=== PATIENT | male | born 2000 | race African-American/Black ===

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

== ENCOUNTER 2019-03-29 01:54 | Emergency (ER) | payer OTHER, SELFPAY ==
[2019-03-29] MEDS ORDERED: Ondansetron PF 4 MG/2 ML Vial ONE (02:22)
[2019-03-29 02:32] LABS: #Basophils 0.1 thou/uL (0.0-0.2); #Eosinphils 0.2 thou/uL (0.0-0.7); #Lymphocytes 2.2 thou/uL (1.20-3.40); #Monocytes 0.4 thou/uL (0.11-0.59); #Neutrophils 3.3 thou/uL (1.40-6.50); %Basophils 1.8 % (0.0-1.0); %Eosinophils 3.2 % (0.0-10.0); %Lymphocytes 34.9 % (28.0-48.0); %Monocytes 6.9 % (0.0-4.0); %Neutrophils 53.2 % (31.0-61.0); Hemoglobin 12.4 g/dL (14.0-18.0); Mean Corpuscular HGB CONC 33.4 g/dL (32.0-36.0); Mean Corpuscular Volume 74.9 fL (78.0-98.0); Mean Platelet Volume 10.5 fL (7.4-10.4); Platelet Count 166 thou/uL (130-400); RBC Distribution Width 12.1 % (11.5-14.5); Red Blood Cell (RBC) Count 4.98 mill/uL (4.00-5.20); White Blood Cell (WBC) Count 6.2 thou/uL (4.8-10.8)
[2019-03-29 02:53] LABS: Acetaminophen Less than 6.0 mcg/mL (10.0-30.0); Alcohol 132 mg/dL (Less than 10); Salicylate Less than 8.0 mg/dL (15.0-30.0)
[2019-03-29 02:54] LABS: ALT (SGPT) 9 U/L (8-55); AST (SGOT) 18 U/L (10-45); Albumin 4.3 g/dL (3.5-5.0); Alkaline Phosphatase 60 U/L (50-130); Anion Gap 13 mmol/L (10-20); BUN (Urea Nitrogen) 7 mg/dL (8.4-21.0); Bilirubin, Total 0.3 mg/dL (0.2-1.2); Calc. Creatinine Clearance 0 mL/min (70-130); Calcium 8.8 mg/dL (7.8-10.44); Carbon Dioxide 23 mmol/L (22-29); Chloride 109 mmol/L (98-107); Estimated GFR-MDRD Greater than 90; Globulin 2.6 g/dL (2.4-3.5); Glucose 130 mg/dL (70-105); Protein, Total 6.9 g/dL (6.0-8.3); Sodium 142 mmol/L (136-145)
[2019-03-29 03:00] LABS: Potassium 2.8 mmol/L (3.5-5.1)
[2019-03-29] MEDS ORDERED: Potassium Chloride 20 MEQ TAB ONE (03:05)
[2019-03-29] MEDS ORDERED: Metoclopramide HCl 10 MG/2 ML VIAL ONE (03:05)
[2019-03-29] MEDS ORDERED: D5 1/2 NS w/20 mEq KCL 1,000 ML IV SCH (03:15)
[2019-03-29 05:43] LABS: Amphetamine Not Detected (NotDetected); Barbiturates Screen Not Detected (NotDetected); Benzodiazepine Screen Not Detected (NotDetected); Cocaine Metabolite Screen Not Detected (NotDetected); Medtox Control Line Valid? VALID (VALID); Medtox Reader # READER 4; Methadone Not Detected (NotDetected); Methamphetamine Not Detected (NotDetected); Opiate Screen Not Detected (NotDetected); Oxycodone Screen Not Detected (NotDetected); Phencyclidine (PCP) Not Detected (NotDetected); THC/Cannabinoid Screen Detected (NotDetected); Tricyclic Screen Not Detected (NotDetected)
== END 2019-03-29 05:16 | disposition home or self-care (01) ==
LOC: ERS 01:54
DX: F10.129 Alcohol abuse with intoxication, unspecified (principal); F90.9 Attention-deficit hyperactivity disorder, unspecified type
CPT/HCPCS: 36415; 80053; 80306; 80307; 85025; 96361; 96365; 96366; 96375; J2405; J2765